=== PATIENT | male | born 1945 | race African-American/Black ===

== ENCOUNTER 2018-01-25 09:35 | Inpatient (IN) | payer OTHER ==
[2018-01-25 09:59] VITALS: BMI 31.3
--- NOTE | 2018-01-25 13:23 | HP ---
COWS - Scale Resting Pulse: 0= CT 80 or Below Sweatin=Flushed/Facial Moisture Restless Observation: 0= Sits Still Pupil Size: 2= Moderately Dilated Bone or Joint Aches: 2= Severe Diffuse Aches Runny Nose/ Eye Tearin= Nasal Congestion GI Upset > 30mins: 2= Nausea/Diarrhea Tremor Observation: 2= Slight Tremor Visible Yawning Observation: 0= None Anxiety or Irritability: 1=Feels Anxious/Irritable Goose Flesh Skin: 0=Smooth Skin COWS Score: 12 CIWA Score - CIWA Score Nausea/Vomitin Muscle Tremors: 2 Anxiety: 2 Agitation: 0-Normal Activity Paroxysmal Sweats: 2 Orientation: 1-Uncertain about Date Tacttile Disturbances: 0-None Auditory Disturbances: 0-None Visual Disturbances: 0-None Headache: 3-Moderate CIWA-Ar Total Score: 12 Admission [facility] - HPI Chief Complaint: ETOH/Heroin withdrawal symptoms. Allergies/Adverse Reactions: Allergies Allergy/AdvReac Type Severity Reaction Status Date / Time No Known Allergies Allergy Verified 01/25/18 11:21 History of Present Illness: Patient present with ETOH/Heroin withdrawal symptoms. Patient started drinking ETOH at age [age] years old. Drinks up to 6 22 ounces of beer daily. Last drink today at 1pm. Patient also in MMTP at [place]. Currently takes MTD 3mg daily which was verified by RN. Last dose today. Patient however, was using snorting heroin up to 2 bags every other day. Last time he used Heroin was . Denies having seizures from ETOH use/withdrawal. Denies SI/HI and suicide attempts. Patient has attempted detox in past, last time at [facility] one year ago. PMH HTN, COPD, cirrohosis of liver, Hep C (treated 2017) and chronic edema. Discussed dose of MTD with Dr. Medina. Patient informed that MTD lowest dose we can give here at [facility] 5mg daily. Patient agreed with dosage and verbalized understanding of all information. Exam Limitations: Intoxication - Ebola screening Have you traveled outside of the country in the last 21 days: No Have you had contact with anyone from an Ebola affected area: No Have you been sick,other than usual withdrawal symptoms: No Do you have a fever: No - Review of Systems Constitutional: Night Sweats, Changes in sleep, Unintentional Wgt. Loss EENT: reports: Blurred Vision, Nose Congestion Respiratory: reports: No Symptoms reported Cardiac: reports: No Symptoms Reported GI: reports: Diarrhea, Nausea, Poor Fluid Intake : reports: No Symptoms Reported Musculoskeletal: reports: Back Pain, Joint Pain, Muscle Pain Integumentary: reports: Sweating Neuro: reports: Tremors Endocrine: reports: Unexplained Weight Loss Hematology: reports: No Symptoms Reported Psychiatric: reports: Orientated x3, Anxious, Depressed Patient History - Patient Medical History Hx Anemia: No Hx Asthma: No Hx Chronic Obstructive Pulmonary Disease (COPD): Yes Hx Cancer: No Hx Cardiac Disorders: No Hx Congestive Heart Failure: No Hx Hypertension: Yes Hx Hypercholesterolemia: No Hx Pacemaker: No HX Cerebrovascular Accident: No Hx Seizures: No Hx Dementia: No Hx Diabetes: No Hx Gastrointestinal Disorders: Yes (acid reflux) Hx Liver Disease: Yes (cirrohosis of the liver) Hx Genitourinary Disorders: No Hx Sexually Transmitted Disorders: Yes (gonorrhea) Hx Renal Disease (ESRD): No Hx Thyroid Disease: No Hx Human Immunodeficiency Virus (HIV): No (negative) Hx Hepatitis C: Yes (treated 2016) Hx Depression: No Hx Suicide Attempt: No Hx Bipolar Disorder: No Hx Schizophrenia: No - Patient Surgical History Past Surgical History: Yes Hx Neurologic Surgery: No Hx Cataract Extraction: No Hx Cardiac Surgery: No Hx Lung Surgery: No Hx Breast Surgery: No Hx Breast Biopsy: No Hx Abdominal Surgery: Yes (umbilical hernia repair in the 1959) Hx Appendectomy: Yes Hx Cholecystectomy: No Hx Genitourinary Surgery: No Hx Section: No Hx Orthopedic Surgery: No Anesthesia Reaction: No - PPD History Previous Implant?: Yes Documented Results: Positive w/proof Implanted On Prior [facility] Admission?: Yes Date: 02/29/16 Results: 15 mm PPD to be Administered?: No - Smoking Cessation Smoking history: Former smoker Have you smoked in the past 12 months: No If you are a former smoker, when did you quit?: 2000 Hx Chewing Tobacco Use: No Initiated information on smoking cessation: No - Substances Abused Heroin Route: Inhalation Frequency: 3-6 times per week Amount used: 2 bags Age of first use: 15 Date of Last Use: 01/23/18 Alcohol-beer Route: Oral Frequency: Daily Amount used: 1-6 pk. (22 oz.) Age of first use: 14 Date of Last Use: 01/25/18 Family Disease History - Family Disease History Family Disease History: Respiratory: Mother (Emphysema, ) Admission Physical Exam [facility] - Vital Signs Vital Signs: Vital Signs - 24 hr 01/25/18 09:58 Temperature 98.2 F Pulse Rate 71 Respiratory 18 Rate Blood Pressure 149/86 - Physical General Appearance: Yes: Alcohol on Breath, Tremorous, Sweating, Anxious HEENTM: Yes: EOMI, Hearing grossly Normal, Normocephalic, Normal Voice, MOHAMUD, Pharynx Normal, Nasal Congestion Respiratory: Yes: Chest Non-Tender, Lungs Clear, Normal Breath Sounds, No Respiratory Distress, No Accessory Muscle Use Neck: Yes: No masses,lesions,Nodules, Supple Breast: Yes: Breast Exam Deferred Cardiology: Yes: Regular Rhythm, Regular Rate, S1, S2, Edema Abdominal: Yes: Normal Bowel Sounds, Non Tender, Soft Genitourinary: Yes: Within Normal Limits Back: Yes: Muscle Spasm Musculoskeletal: Yes: Gait Steady, Back pain, Muscle Pain Extremities: Yes: Normal Range of Motion, Non-Tender, Tremors Neurological: Yes: campaign marketing manager II-XII NML intact, Alert, Disoriented (forgetful with Month, thought it was December.), Depressed Affect Integumentary: Yes: Warm, Moist Lymphatic: Yes: Within Normal Limits - Diagnostic (1) Opioid dependence with withdrawal Current Visit: Yes Status: Acute (2) Alcohol dependence with uncomplicated withdrawal Current Visit: Yes Status: Acute (3) Cirrhosis of liver Current Visit: Yes Status: Chronic Qualifiers: Ascites presence: unspecified (4) Hepatitis C Current Visit: Yes Status: Chronic Qualifiers: Viral hepatitis chronicity: chronic (5) Methadone maintenance therapy patient Current Visit: Yes Status: Chronic Comment: Methadone verified by RN. Pt received 3mg daily. Last dose today. Cleared for Admission [facility] - Detox or Rehab [facility] Level of Care: Medically Managed Detox Regimen/Protocol: Librium [facility] Breath Alcohol Content Breath Alcohol Content: 0.095 Urine Drug Screen - Results Drug Screen Negative: No Urine Drug Screen Results: MTD-Methadone
[2018-01-25] MEDS ORDERED: ALBUTEROL SO4 18 GM HFA INHALER IH PRN (13:39)
[2018-01-25] MEDS ORDERED: MAGNESIUM CITRATE 300 ML BOTTLE PO PRN (13:40)
[2018-01-25] MEDS ORDERED: IBUPROFEN 400 MG TABLET (FP) PO PRN (13:40)
[2018-01-25] MEDS ORDERED: ACETAMINOPHEN 325 MG TABLET (FP) PO PRN (13:40)
[2018-01-25] MEDS ORDERED: LOPERAMIDE HCL 2 MG CAPSULE PO PRN (13:40)
[2018-01-25] MEDS ORDERED: MAG HYDROX/AL HYDROX/SIMETH 30 ML UNIT-DOSE CUP PO PRN (13:40)
[2018-01-25] MEDS ORDERED: P-EPHED 60MG/TRIPROLIDI 2.5MG TABLET PO PRN (13:40)
[2018-01-25] MEDS ORDERED: guaiFENesin/D-METHORPHAN HB 10 ML UNIT-DOSE CUPS PO PRN (13:40)
[2018-01-25] MEDS ORDERED: MENTHOL/PHENOL 1 EACH UD MM PRN (13:40)
[2018-01-25] MEDS ORDERED: MAGNESIUM HYDROX 2400MG/30ML ORAL SUSPENSION 30 ML CUP PO PRN (13:40)
[2018-01-25] MEDS ORDERED: hydrOXYzine PAMOATE 50 MG CAPSULE (FP) PO PRN (13:40)
[2018-01-25] MEDS ORDERED: chlordiazePOXIDE HCL 25 MG CAPSULE PO PRN (13:45)
[2018-01-25] MEDS ORDERED: chlordiazePOXIDE HCL 25 MG CAPSULE PO ONE (14:30)
[2018-01-25 16:35] LABS: URINE APPEARANCE CLEAR; URINE BILIRUBIN NEGATIVE (<2.0 mg/dL); URINE COLOR LTYELLOW; URINE GLUCOSE (UA) NEGATIVE (NEGATIVE); URINE KETONE NEGATIVE (NEGATIVE); URINE LEUK ESTERASE NEGATIVE (NEGATIVE); URINE NITRITE NEGATIVE (NEGATIVE); URINE UROBILINOGEN NEGATIVE mg/dL (0.2-1.0)
[2018-01-25 16:37] LABS: URINE PROTEIN 1+ (NEGATIVE)
[2018-01-25] MEDS: chlordiazePOXIDE HCL 25 MG CAPSULE PO SCH ×2 (17:33→22:24)
[2018-01-25] MEDS ORDERED: MELATONIN 5 MG TABLETS PO PRN (22:00)
[2018-01-25] MEDS: THIAMINE HCL 100 MG TABLET (FP) PO SCH (22:24)
[2018-01-25] MEDS: AMILORIDE HCL PO SCH (22:24)
[2018-01-26] MEDS: chlordiazePOXIDE HCL 25 MG CAPSULE PO SCH ×4 (05:20→22:29)
[2018-01-26] MEDS: METHADONE HCL 5 MG TABLET PO SCH (06:14)
--- NOTE | 2018-01-26 08:55 | CONSULT ---
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 This is one of multiple admissions for patient. Pt. admitted to for alcohol dependence. Substance Abuse History: Following information confirmed with Mr. Valentine: - Smoking Cessation. Smoking history: Former smoker. Have you smoked in the past 12 months: No. If you are a former smoker, when did you quit?: 2000. Hx Chewing Tobacco Use: No. Initiated information on smoking cessation: No. - Substances Abused. Heroin. Route: Inhalation. Frequency: 3-6 times per week. Amount used: 2 bags. Age of first use: 15. Date of Last Use: 01/23/18. Alcohol-beer. Route: Oral. Frequency: Daily. Amount used: 1-6 pk. (22 oz.). Age of first use: 14. Date of Last Use: 01/25/18 Medical History: umbilical hernia repair in the 1959, Acid reflux, Cirrhosis of the liver Psychiatric History: Patient denies h/o psychiatric hospitalizations, outpatient care, and suicide attempt. Patient is currently at the methadone program at [facility]. Pt receives 3mg of methadone daily. Physical/Sexual Abuse/Trauma History: Denies. Mental Status Exam - Mental Status Exam Alert and Oriented to: Time, Place, Person Cognitive Function: Good Patient Appearance: Well Groomed Mood: Happy Affect: Mood Congruent Patient Behavior: Appropriate, Cooperative Speech Pattern: Clear, Appropriate Voice Loudness: Normal Thought Process: Goal Oriented Thought Disorder: Not Present Hallucinations: Denies Suicidal Ideation: Denies Homicidal Ideation: Denies Insight/Judgement: Poor Sleep: Poorly Appetite: Fair Muscle strength/Tone: Normal Gait/Station: Normal Psychiatric Findings - Problem List ([place] 1, 2,3) (1) Alcohol dependence with uncomplicated withdrawal Current Visit: Yes Status: Acute (2) Methadone maintenance therapy patient Current Visit: Yes Status: Chronic Comment: Methadone verified by RN. Pt received 3mg daily. Last dose today. (3) Insomnia Current Visit: Yes Status: Acute - Initial Treatment Plan Initial Treatment Plan: Psychoeducation provided. Detoxification in progress. Trazodone 50mg qhs ordered for insomnia. Benefits and side effects discussed. Pt. made aware of the risk of pripism. Verbal consent given. Will continue to monitor.
[2018-01-26 09:53] LABS: HEMATOCRIT 36.1 % (35.4-49); HEMOGLOBIN 12.5 GM/dL (11.7-16.9); MCH 30.9 pg (25.7-33.7); MCHC 34.7 g/dl (32.0-35.9); MEAN CELL VOLUME 89.2 fl (80-96); MEAN PLT VOLUME 11.7 fl (7.5-11.1); PLATELET COUNT 90 K/MM3 (134-434); RBC 4.05 M/mm3 (4.00-5.60); RDW 14.4 % (11.9-15.9); WHITE BLOOD COUNT 5.1 K/mm3 (4.0-10.0)
--- NOTE | 2018-01-26 09:54 | EKG ---
Test Reason : Blood Pressure : / mmHG Vent. Rate : 072 BPM Atrial Rate : 072 BPM P-R Int : 170 ms QRS Dur : 078 ms QT Int : 390 ms P-R-T Axes : 074 063 054 degrees QTc Int : 427 ms NORMAL SINUS RHYTHM NORMAL ECG NO PREVIOUS ECGS AVAILABLE Confirmed by MD Rosalee, Casey ([id number]) on 01/26/2018 9:53:30 AM Referred By: Confirmed By:Casey Turk MD
[2018-01-26 10:09] LABS: CHLORIDE 110 mmol/L (98-107); POTASSIUM 3.9 mmol/L (3.5-5.1); SODIUM 141 mmol/L (136-145)
[2018-01-26 10:25] LABS: ALBUMIN 3.3 g/dl (3.4-5.0); ALK PHOS 117 U/L (45-117); ANION GAP 7 (8-16); BILIRUBIN,TOTAL 1.2 mg/dL (0.2-1.0); BLOOD UREA NITROGEN 9 mg/dL (7-18); CALCIUM 10.3 mg/dL (8.5-10.1); CO2 24 mmol/L (21-32); CREATININE 0.9 mg/dL (0.7-1.3); GLUCOSE,RANDOM 99 mg/dL (74-106); SGOT/AST 75 U/L (15-37); SGPT/ALT 35 U/L (12-78)
[2018-01-26] MEDS: AMILORIDE HCL PO SCH ×2 (10:51→22:28)
[2018-01-26] MEDS: FUROSEMIDE 40 MG TABLET (FP) PO SCH (10:52)
[2018-01-26] MEDS: PRENATAL VITAMINS W/ FOLIC ACID TABLET (FP) PO SCH (10:52)
[2018-01-26] MEDS ORDERED: METHADONE HCL 10 MG TABLET PO ONE (11:45)
[2018-01-26] MEDS: LIDOCAINE 5% TOPICAL PATCH TP SCH (11:45)
--- NOTE | 2018-01-26 12:47 | PN ---
S CIWA - CIWA Score Nausea/Vomitin Muscle Tremors: 3 Anxiety: 3 Agitation: 2 Paroxysmal Sweats: 1-Minimal Palms Moist Orientation: 0-Oriented Tacttile Disturbances: 1-Very Mild Itch/Numbness Auditory Disturbances: 1-Very Mild Visual Disturbances: 0-None Headache: 2-Mild CIWA-Ar Total Score: 16 S Progress Note (SOAP) Subjective: ALERT,IRRITABLE,ANXIOUS INTERRUPTED SLEEP,TREMOR,PAIN IN THE BODY AND ABCK Objective: 01/26/18 12:44 Vital Signs Temperature 98.1 F 01/26/18 08:58 Pulse Rate 77 01/26/18 11:00 Respiratory Rate 18 01/26/18 11:00 Blood Pressure 142/61 01/26/18 08:58 O2 Sat by Pulse Oximetry (%) 01/26/18 12:45 EKG NSR,NORMAL ECG,PROLONG QT 390/427 NO CHEST PAIN,NO SOB,NO DIZZINESS Laboratory Last Values WBC 5.1 K/mm3 (4.0-10.0) 01/26/18 06:00 RBC 4.05 M/mm3 (4.00-5.60) 01/26/18 06:00 Hgb 12.5 GM/dL (11.7-16.9) 01/26/18 06:00 Hct 36.1 % (35.4-49) 01/26/18 06:00 MCV 89.2 fl (80-96) 01/26/18 06:00 MCH 30.9 pg (25.7-33.7) 01/26/18 06:00 MCHC 34.7 g/dl (32.0-35.9) 01/26/18 06:00 RDW 14.4 % (11.9-15.9) 01/26/18 06:00 Plt Count 90 K/MM3 (134-434) L 01/26/18 06:00 MPV 11.7 fl (7.5-11.1) H 01/26/18 06:00 Sodium 141 mmol/L (136-145) 01/26/18 06:00 Potassium 3.9 mmol/L (3.5-5.1) 01/26/18 06:00 Chloride 110 mmol/L (98-107) H 01/26/18 06:00 Carbon Dioxide 24 mmol/L (21-32) D 01/26/18 06:00 Anion Gap 7 (8-16) L 01/26/18 06:00 BUN 9 mg/dL (7-18) D 01/26/18 06:00 Creatinine 0.9 mg/dL (0.7-1.3) 01/26/18 06:00 Creat Clearance w eGFR > 60 (>60) 01/26/18 06:00 Random Glucose 99 mg/dL (74-106) D 01/26/18 06:00 Calcium 10.3 mg/dL (8.5-10.1) H 01/26/18 06:00 Total Bilirubin 1.2 mg/dL (0.2-1.0) H D 01/26/18 06:00 AST 75 U/L (15-37) H D 01/26/18 06:00 ALT 35 U/L (12-78) D 01/26/18 06:00 Alkaline Phosphatase 117 U/L (45-117) 01/26/18 06:00 Total Protein 8.0 g/dl (6.4-8.2) 01/26/18 06:00 Albumin 3.3 g/dl (3.4-5.0) L 01/26/18 06:00 Urine Color Ltyellow 01/25/18 14:00 Urine Appearance Clear 01/25/18 14:00 Urine pH 5.0 (5.0-8.0) 01/25/18 14:00 Ur Specific [place] 1.006 (1.001-1.035) 01/25/18 14:00 Urine Protein 1+ (NEGATIVE) H 01/25/18 14:00 Urine Glucose (UA) Negative (NEGATIVE) 01/25/18 14:00 Urine Ketones Negative (NEGATIVE) 01/25/18 14:00 Urine Blood 1+ (NEGATIVE) H 01/25/18 14:00 Urine Nitrite Negative (NEGATIVE) 01/25/18 14:00 Urine Bilirubin Negative (<2.0 mg/dL) 01/25/18 14:00 Urine Urobilinogen Negative mg/dL (0.2-1.0) 01/25/18 14:00 Ur Leukocyte Esterase Negative (NEGATIVE) 01/25/18 14:00 Urine WBC (Auto) <1 /hpf (3-5) 01/25/18 14:00 Urine RBC (Auto) None /hpf (0-3) 01/25/18 14:00 01/26/18 12:46 LABS PENDING Assessment: 01/26/18 12:46 WITHDRAWAL SYMPTOM Plan: CONTINUE DETOX,REPEAT CMP IN AM,ENCOURAGE ORAL FLUID
[2018-01-26] MEDS: THIAMINE HCL 100 MG TABLET (FP) PO SCH (22:29)
[2018-01-26] MEDS: traZODone HCL 50 MG TABLET (FP) PO SCH (22:29)
[2018-01-26] MEDS: LIDOCAINE PATCH REMOVAL MC SCH (22:30)
[2018-01-27] MEDS: METHADONE HCL 5 MG TABLET PO SCH (05:29)
[2018-01-27] MEDS: chlordiazePOXIDE HCL 25 MG CAPSULE PO SCH ×2 (05:30→10:43)
--- NOTE | 2018-01-27 10:28 | PN ---
S CIWA - CIWA Score Nausea/Vomitin Muscle Tremors: 3 Anxiety: 2 Agitation: 2 Paroxysmal Sweats: 1-Minimal Palms Moist Orientation: 0-Oriented Tacttile Disturbances: 1-Very Mild Itch/Numbness Auditory Disturbances: 1-Very Mild Visual Disturbances: 0-None Headache: 2-Mild CIWA-Ar Total Score: 15 S Progress Note (SOAP) Subjective: ALERT,INTERRUPTED SLEEP,PAIN IN BOTH LEGS,TREMOR Objective: 01/27/18 10:26 Vital Signs Temperature 98.1 F 01/27/18 07:27 Pulse Rate 69 01/27/18 07:27 Respiratory Rate 20 01/27/18 07:27 Blood Pressure 144/76 01/27/18 07:27 O2 Sat by Pulse Oximetry (%) Laboratory Last Values WBC 5.1 K/mm3 (4.0-10.0) 01/26/18 06:00 RBC 4.05 M/mm3 (4.00-5.60) 01/26/18 06:00 Hgb 12.5 GM/dL (11.7-16.9) 01/26/18 06:00 Hct 36.1 % (35.4-49) 01/26/18 06:00 MCV 89.2 fl (80-96) 01/26/18 06:00 MCH 30.9 pg (25.7-33.7) 01/26/18 06:00 MCHC 34.7 g/dl (32.0-35.9) 01/26/18 06:00 RDW 14.4 % (11.9-15.9) 01/26/18 06:00 Plt Count 90 K/MM3 (134-434) L 01/26/18 06:00 MPV 11.7 fl (7.5-11.1) H 01/26/18 06:00 Sodium 141 mmol/L (136-145) 01/26/18 06:00 Potassium 3.9 mmol/L (3.5-5.1) 01/26/18 06:00 Chloride 110 mmol/L (98-107) H 01/26/18 06:00 Carbon Dioxide 24 mmol/L (21-32) D 01/26/18 06:00 Anion Gap 7 (8-16) L 01/26/18 06:00 BUN 9 mg/dL (7-18) D 01/26/18 06:00 Creatinine 0.9 mg/dL (0.7-1.3) 01/26/18 06:00 Creat Clearance w eGFR > 60 (>60) 01/26/18 06:00 Random Glucose 99 mg/dL (74-106) D 01/26/18 06:00 Calcium 10.3 mg/dL (8.5-10.1) H 01/26/18 06:00 Total Bilirubin 1.2 mg/dL (0.2-1.0) H D 01/26/18 06:00 AST 75 U/L (15-37) H D 01/26/18 06:00 ALT 35 U/L (12-78) D 01/26/18 06:00 Alkaline Phosphatase 117 U/L (45-117) 01/26/18 06:00 Total Protein 8.0 g/dl (6.4-8.2) 01/26/18 06:00 Albumin 3.3 g/dl (3.4-5.0) L 01/26/18 06:00 Urine Color Ltyellow 01/25/18 14:00 Urine Appearance Clear 01/25/18 14:00 Urine pH 5.0 (5.0-8.0) 01/25/18 14:00 Ur Specific [place] 1.006 (1.001-1.035) 01/25/18 14:00 Urine Protein 1+ (NEGATIVE) H 01/25/18 14:00 Urine Glucose (UA) Negative (NEGATIVE) 01/25/18 14:00 Urine Ketones Negative (NEGATIVE) 01/25/18 14:00 Urine Blood 1+ (NEGATIVE) H 01/25/18 14:00 Urine Nitrite Negative (NEGATIVE) 01/25/18 14:00 Urine Bilirubin Negative (<2.0 mg/dL) 01/25/18 14:00 Urine Urobilinogen Negative mg/dL (0.2-1.0) 01/25/18 14:00 Ur Leukocyte Esterase Negative (NEGATIVE) 01/25/18 14:00 Urine WBC (Auto) <1 /hpf (3-5) 01/25/18 14:00 Urine RBC (Auto) None /hpf (0-3) 01/25/18 14:00 RPR Titer Nonreactive (NONREACTIVE) 05/08/18 06:00 HIV 1&2 Antibody Screen Negative 01/25/18 14:00 HIV P24 Antigen Negative 01/25/18 14:00 Assessment: 01/27/18 10:27 WITHDRAWAL SYMPTOM Plan: CONTINUE DETOX,REPEAT CMP PENDING
[2018-01-27] MEDS: FUROSEMIDE 40 MG TABLET (FP) PO SCH (10:42)
[2018-01-27] MEDS: PRENATAL VITAMINS W/ FOLIC ACID TABLET (FP) PO SCH (10:42)
[2018-01-27] MEDS: CYCLOBENZAPRINE HCL 5 MG TABLET PO PRN (10:42)
[2018-01-27] MEDS: AMILORIDE HCL PO SCH ×2 (10:43→22:14)
[2018-01-27 11:10] LABS: CHLORIDE 104 mmol/L (98-107); POTASSIUM 3.8 mmol/L (3.5-5.1); SODIUM 139 mmol/L (136-145)
[2018-01-27 12:10] LABS: ALBUMIN 3.1 g/dl (3.4-5.0); ALK PHOS 86 U/L (45-117); ANION GAP 10 (8-16); BILIRUBIN,TOTAL 1.5 mg/dL (0.2-1.0); BLOOD UREA NITROGEN 10 mg/dL (7-18); CALCIUM 9.8 mg/dL (8.5-10.1); CO2 25 mmol/L (21-32); CREATININE 0.9 mg/dL (0.7-1.3); GLUCOSE,RANDOM 114 mg/dL (74-106); SGOT/AST 79 U/L (15-37); SGPT/ALT 39 U/L (12-78); TOT PROT 7.4 g/dl (6.4-8.2)
[2018-01-27] MEDS: LIDOCAINE 5% TOPICAL PATCH TP SCH (13:28)
[2018-01-27] MEDS: chlordiazePOXIDE 5 MG CAPSULE PO SCH ×2 (17:47→22:55)
[2018-01-27] MEDS: THIAMINE HCL 100 MG TABLET (FP) PO SCH (22:11)
[2018-01-27] MEDS: LIDOCAINE PATCH REMOVAL MC SCH (22:12)
[2018-01-27] MEDS: traZODone HCL 50 MG TABLET (FP) PO SCH (22:12)
[2018-01-28] MEDS: METHADONE HCL 5 MG TABLET PO SCH (05:44)
[2018-01-28] MEDS: chlordiazePOXIDE 5 MG CAPSULE PO SCH ×2 (05:44→10:52)
[2018-01-28] MEDS: FUROSEMIDE 40 MG TABLET (FP) PO SCH (10:52)
[2018-01-28] MEDS: CYCLOBENZAPRINE HCL 5 MG TABLET PO PRN (10:52)
[2018-01-28] MEDS: PRENATAL VITAMINS W/ FOLIC ACID TABLET (FP) PO SCH (10:52)
[2018-01-28] MEDS: AMILORIDE HCL PO SCH ×2 (10:52→22:42)
--- NOTE | 2018-01-28 12:01 | PN ---
[facility] Progress Note (SOAP) Subjective: ALERT,IRRITABLE,INTERRUPTED SLEEP Objective: 01/28/18 11:59 Vital Signs Temperature 98.1 F 01/28/18 09:22 Pulse Rate 111 H 01/28/18 09:22 Respiratory Rate 20 01/28/18 09:22 Blood Pressure 107/73 01/28/18 09:22 O2 Sat by Pulse Oximetry (%) Laboratory Results - last 24 hr 01/27/18 07:30 Sodium 139 Potassium 3.8 Chloride 104 Carbon Dioxide 25 Anion Gap 10 BUN 10 Creatinine 0.9 Creat Clearance w eGFR > 60 Random Glucose 114 H Calcium 9.8 Total Bilirubin 1.5 H D AST 79 H ALT 39 Alkaline Phosphatase 86 D Total Protein 7.4 Albumin 3.1 L Assessment: 01/28/18 11:59 WITHDRAWAL SYMPTOM Plan: CONTINUE DETOX,REQUESTED CANE,HAS CANE AT HOME
[2018-01-28] MEDS: LIDOCAINE 5% TOPICAL PATCH TP SCH (12:28)
[2018-01-28] MEDS: chlordiazePOXIDE HCL 10 MG CAPSULE PO SCH ×2 (17:55→22:42)
[2018-01-28] MEDS: traZODone HCL 50 MG TABLET (FP) PO SCH (22:42)
[2018-01-28] MEDS: LIDOCAINE PATCH REMOVAL MC SCH (22:42)
[2018-01-28] MEDS: THIAMINE HCL 100 MG TABLET (FP) PO SCH (22:42)
[2018-01-29] MEDS: chlordiazePOXIDE HCL 10 MG CAPSULE PO SCH (05:24)
[2018-01-29] MEDS: METHADONE HCL 5 MG TABLET PO SCH (05:25)
--- NOTE | 2018-01-29 08:58 | PN ---
S Progress Note (SOAP) Subjective: ALERT,NO COMPLAINT Objective: 01/29/18 08:56 Vital Signs Temperature 98.1 F 01/29/18 06:16 Pulse Rate 70 01/29/18 06:16 Respiratory Rate 18 01/29/18 06:30 Blood Pressure 116/74 01/29/18 06:16 O2 Sat by Pulse Oximetry (%) Assessment: 01/29/18 08:56 DETOX COMPLETED,NO WITHDRAWAL SYMPTOM Plan: DISCHARGE TODAY,FOLLOW UP WITH AFTER CARE PROGRAM ARRANGEMENT
--- NOTE | 2018-01-29 09:03 | DS ---
[facility] Detox Discharge Summary Admission Date: 01/25/18 Discharge Date: 01/29/18 - History Present History: Alcohol Dependence, MMTP Additional Comments: FOLLOW UP WITH AFTER CARE PROGRAM ARRANGEMENT Pertinent Past History: CIRRHOSIS HEPATITIS C - Physical Exam Results Vital Signs: Vital Signs Temperature 98.1 F 01/29/18 06:16 Pulse Rate 70 01/29/18 06:16 Respiratory Rate 18 01/29/18 06:30 Blood Pressure 116/74 01/29/18 06:16 O2 Sat by Pulse Oximetry (%) Pertinent Admission Physical Exam Findings: WITHDRAWAL SIGNS AND SYMPTOM Laboratory Last Values WBC 5.1 K/mm3 (4.0-10.0) 01/26/18 06:00 RBC 4.05 M/mm3 (4.00-5.60) 01/26/18 06:00 Hgb 12.5 GM/dL (11.7-16.9) 01/26/18 06:00 Hct 36.1 % (35.4-49) 01/26/18 06:00 MCV 89.2 fl (80-96) 01/26/18 06:00 MCH 30.9 pg (25.7-33.7) 01/26/18 06:00 MCHC 34.7 g/dl (32.0-35.9) 01/26/18 06:00 RDW 14.4 % (11.9-15.9) 01/26/18 06:00 Plt Count 90 K/MM3 (134-434) L 01/26/18 06:00 MPV 11.7 fl (7.5-11.1) H 01/26/18 06:00 Sodium 139 mmol/L (136-145) 01/27/18 07:30 Potassium 3.8 mmol/L (3.5-5.1) 01/27/18 07:30 Chloride 104 mmol/L (98-107) 01/27/18 07:30 Carbon Dioxide 25 mmol/L (21-32) 01/27/18 07:30 Anion Gap 10 (8-16) 01/27/18 07:30 BUN 10 mg/dL (7-18) 01/27/18 07:30 Creatinine 0.9 mg/dL (0.7-1.3) 01/27/18 07:30 Creat Clearance w eGFR > 60 (>60) 01/27/18 07:30 Random Glucose 114 mg/dL (74-106) H 01/27/18 07:30 Calcium 9.8 mg/dL (8.5-10.1) 01/27/18 07:30 Total Bilirubin 1.5 mg/dL (0.2-1.0) H D 01/27/18 07:30 AST 79 U/L (15-37) H 01/27/18 07:30 ALT 39 U/L (12-78) 01/27/18 07:30 Alkaline Phosphatase 86 U/L (45-117) D 01/27/18 07:30 Total Protein 7.4 g/dl (6.4-8.2) 01/27/18 07:30 Albumin 3.1 g/dl (3.4-5.0) L 01/27/18 07:30 Urine Color Ltyellow 01/25/18 14:00 Urine Appearance Clear 01/25/18 14:00 Urine pH 5.0 (5.0-8.0) 01/25/18 14:00 Ur Specific [place] 1.006 (1.001-1.035) 01/25/18 14:00 Urine Protein 1+ (NEGATIVE) H 01/25/18 14:00 Urine Glucose (UA) Negative (NEGATIVE) 01/25/18 14:00 Urine Ketones Negative (NEGATIVE) 01/25/18 14:00 Urine Blood 1+ (NEGATIVE) H 01/25/18 14:00 Urine Nitrite Negative (NEGATIVE) 01/25/18 14:00 Urine Bilirubin Negative (<2.0 mg/dL) 01/25/18 14:00 Urine Urobilinogen Negative mg/dL (0.2-1.0) 01/25/18 14:00 Ur Leukocyte Esterase Negative (NEGATIVE) 01/25/18 14:00 Urine WBC (Auto) <1 /hpf (3-5) 01/25/18 14:00 Urine RBC (Auto) None /hpf (0-3) 01/25/18 14:00 RPR Titer Nonreactive (NONREACTIVE) 01/26/18 06:00 HIV 1&2 Antibody Screen Negative 01/25/18 14:00 HIV P24 Antigen Negative 01/25/18 14:00 Vital Signs Temperature 98.1 F 01/29/18 06:16 Pulse Rate 70 01/29/18 06:16 Respiratory Rate 01/29/18 06:30 Blood Pressure 116/74 01/29/18 06:16 O2 Sat by Pulse Oximetry (%) - Treatment Hospital Course: Detox Protocol Followed, Detoxed Safely, Responded well, Discharged Condition Good, Rehab Referral Accepted Patient has Accepted a Rehab Referral to: [facility] - Medication Discharge Medications: Ambulatory Orders Folic Acid - 1 mg PO DAILY 02/27/16 Furosemide [Lasix -] 120 mg PO DAILY 02/27/16 Albuterol Sulfate Inhaler - [Ventolin Hfa Inhaler -] 2 inh PO Q4H PRN 01/25/18 Amiloride HCl 10 mg PO BID 01/25/18 - Diagnosis (1) Alcohol dependence with uncomplicated withdrawal Current Visit: Yes Status: Acute (2) Cirrhosis of liver Current Visit: Yes Status: Chronic Qualifiers: Ascites presence: unspecified (3) Hepatitis C Current Visit: Yes Status: Chronic Qualifiers: Viral hepatitis chronicity: chronic (4) Methadone maintenance therapy patient Current Visit: Yes Status: Chronic (5) Use of cane as ambulatory aid Current Visit: Yes Status: Acute
[2018-01-29] MEDS: LIDOCAINE 5% TOPICAL PATCH TP SCH (10:23)
[2018-01-29] MEDS: FUROSEMIDE 40 MG TABLET (FP) PO SCH (10:23)
[2018-01-29] MEDS: PRENATAL VITAMINS W/ FOLIC ACID TABLET (FP) PO SCH (10:23)
[2018-01-29] MEDS: AMILORIDE HCL PO SCH (10:25)
[2018-01-29 13:30] VITALS: BP 90/61; PULSE 96; TEMP 96.4
== END 2018-01-29 14:19 | disposition home or self-care (01) | DRG 897 ==
LOC: YASAS 09:35 → Y6N 14:05
PROVIDERS: ADMIT Surgery; ATTEND Surgery
PROC: HZ2ZZZZ Detoxification Services for Substance Abuse Treatment (ICD-10-PCS; principal; 2018-01-25)
DX: F11.20 Opioid dependence, uncomplicated (principal); F10.230 Alcohol dependence with withdrawal, uncomplicated; G47.00 Insomnia, unspecified; I10 Essential (primary) hypertension; K21.9 Gastro-esophageal reflux disease without esophagitis; B18.2 Chronic viral hepatitis C; K74.60 Unspecified cirrhosis of liver; R26.9 Unspecified abnormalities of gait and mobility; Z99.89 Dependence on other enabling machines and devices; Z86.19 Personal history of other infectious and parasitic diseases
CPT/HCPCS: 36415; 71046-TC-FY; 80053; 81003; 81015; 85027; 86593; 87389; 93005; 93010